=== PATIENT | male | born 1990 | race Caucasian/White ===

== ENCOUNTER 2019-03-29 13:39 | Emergency (ER) | payer OTHER ==
[2019-03-29] MEDS ORDERED: CHERRY SYRUP 10 ML UDC PO ONE (14:44)
[2019-03-29] MEDS ORDERED: DEXAMETHASONE 10 MG/ML VIAL PO STA (14:44)
[2019-03-29] MEDS ORDERED: KETOROLAC 60 MG/2 ML VIAL IM STA (14:44)
--- NOTE | 2019-03-29 14:46 | ED Physician Documentation ---
PD HPI NECK PAIN - Stated complaint Stated Complaint: NECK PX - Chief complaint Chief Complaint: Heent - History obtained from History obtained from: Patient, Family - History of Present Illness Timing - onset: Last night Timing - duration: Days (1) Timing - details: Abrupt onset, Still present Location: Lower, Left Quality: Pain, Spasm, Sharp Associated symptoms: No: Fever, Weakness, Numbness, Incontinent of urine, Unable to urinate, Hematuria, Incontinent of stool Improves with: Rest Worsened by: Movement, Lifting, Twisting, Palpation Contributing factors: Other (doing a handstand yesterday and fell onto head.) Similar symptoms before: Has not had sx before Recently seen: Other - Additional information Additional information: 28-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 He was not able to get comfortable last night even with medications and heat and ice.He has had an injury to the left shoulder previously and was released from that injury. Review of Systems Constitutional: denies: Fever Eyes: denies: Decreased vision Ears: denies: Ear pain Nose: denies: Congestion Throat: denies: Sore throat Respiratory: denies: Dyspnea, Cough GI: denies: Abdominal Pain, Nausea, Vomiting : denies: Dysuria, Frequency Skin: denies: Rash Musculoskeletal: reports: Neck pain, Extremity pain. denies: Back pain Neurologic: denies: Generalized weakness, Focal weakness, Numbness, Difficulty speaking PD PAST MEDICAL HISTORY - Past Medical History Past Medical History: No - Past Surgical History Past Surgical History: No - Present Medications Home Medications: Ambulatory Orders Medication Instructions Recorded Confirmed Cyclobenzaprine [Flexeril] 10 mg PO TID PRN #20 tablet 03/29/19 Hydrocodone/Acetaminophen 1 - 2 each PO Q6H PRN #14 tablet 03/29/19 [Hydrocodon-Acetaminophen 5-325] - Allergies Allergies/Adverse Reactions: Allergies Allergy/AdvReac Type Severity Reaction Status Date / Time No Known Drug Allergies Allergy Verified 03/29/19 13:45 - Social History Does the pt smoke?: No Smoking Status: Never smoker Does the pt drink ETOH?: No Does the pt have substance abuse?: No - Immunizations Immunizations are current?: Yes PD ED PE NORMAL - Vitals Vital signs reviewed: Yes (hypertensive mild ) - General General: Alert and oriented X 3, Well developed/nourished, Other (moves slowly to look around ) - HEENT HEENT: Atraumatic, PERRL, EOMI - Neck Neck: Supple, no meningeal sign, Other (there is bony point tenderness that is not well localized to the lft lower neck extending to the spinal accessory on the lft shoulder. 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 Mild cervical spine degenerative changes. 2. No fracture.), EMP read indepedently, See rad report PD MEDICAL DECISION MAKING - ED course Complexity details: reviewed results, re-evaluated patient, considered differential, d/w patient, d/w family ED course: 28-year-old male with a cervical spine injury with compression of the cervical spine has pain radiating to the left and he does have some improvement with the use of dexamethasone and Toradol and we will start him on some pain medication and muscle relaxant imaging procedures are without evidence of fracture. Departure - Departure Disposition: 01 Home, Self Care Clinical Impression: Cervical strain, acute Qualifiers: Encounter type: initial encounter Qualified Code(s): S16.1XXA - Strain of muscle, fascia and tendon at neck level, initial encounter Condition: Stable Instructions: ED Sprain Strain Neck Follow-Up: TANIA HILARIO MD [Primary Care Provider] - Prescriptions: Cyclobenzaprine [Flexeril] 10 mg PO TID PRN #20 tablet PRN Reason: Spasms Hydrocodone/Acetaminophen [Hydrocodon-Acetaminophen 5-325] 1 - 2 each PO Q6H PRN #14 tablet PRN Reason: pain Forms: Activity restrictions
--- NOTE | 2019-03-29 15:41 | CT Report ---
Reason: fall on head neck crunching left radicular pain Procedure Date: 03/29/2019 Accession Number: [id number] / [id number] Procedure: CT - CERVICAL SPINE WO CPT Code: FULL RESULT: EXAM: CT CERVICAL SPINE WITHOUT CONTRAST DATE: 03/29/2019 03:09 PM. HISTORY: Fall on head neck crunching left radicular pain. COMPARISONS: None. TECHNIQUE: Thin-section axial images were acquired of the cervical spine without contrast. Post-processing: Coronal and sagittal reformats. Other: None. In accordance with CT protocol optimization, one or more of the following dose reduction techniques were utilized for this exam: automated exposure control, adjustment of mA and/or KV based on patient size, or use of iterative reconstructive technique. FINDINGS: Alignment: No scoliosis or spondylolisthesis. Bones: No fracture or bone lesion. Interspace Levels/Facets: C1-C2: Unremarkable. C2-C3: Unremarkable. C3-C4: Mild bilateral uncovertebral joint hypertrophy. C4-C5: Unremarkable. C5-C6: Mild left neuroforaminal narrowing due to uncovertebral joint hypertrophy. C6-C7: Unremarkable. C7-T1: Unremarkable. Musculature: Normal. No fatty atrophy. Other: The paravertebral and prevertebral soft tissues are unremarkable. The lung apices are clear. IMPRESSION: 1. Mild cervical spine degenerative changes. 2. No fracture. RADIA
[2019-03-29 15:52] VITALS: BP 119/76
== END 2019-03-29 15:59 | disposition home or self-care (01) ==
LOC: ED 13:39
DX: S16.1XXA Strain of muscle, fascia and tendon at neck level, initial encounter (principal); M25.512 Pain in left shoulder; W19.XXXA Unspecified fall, initial encounter; Y93.B9 Activity, other involving muscle strengthening exercises
CPT/HCPCS: 72125; 96372; 99283; A9270